=== PATIENT | male | born 1975 | race Caucasian/White ===

== ENCOUNTER 2018-08-13 20:13 | Observation (INO) | payer BC ==
[2018-08-13] MEDS ORDERED: CLINDAMYCIN 600MG/50ML PREMIX 600 MG/50 ML BAG IVPB ONE (20:26)
[2018-08-13] MEDS ORDERED: 0.9 % SODIUM CHLORIDE 1000ML 1,000 ML IV SCH (20:30)
--- NOTE | 2018-08-13 20:32 | Emergency Department Record ---
History of Present Illness - General Chief complaint: Bite Insect/other Stated complaint: REACTION TO BUG BITE LT LEG Time Seen by Provider: 08/13/18 20:24 Source: Patient Mode of Arrival: Ambulatory Limitations: No limitations - History of Present Illness Initial comments: 43 yo male presents to ED for evaluation of an infection to the left lower extremity that began 2 days ago. Patient reports a bug bite to the left lateral thigh that has become infected. Patient reports that he has been squeezing "drainage" from the wound until this afternoon. Patient reports that he is IDDM, denies fevers, chills, or recent illness. MD complaint: Abscess/boil Onset/Timin -: Days(s) Hx Tetanus Toxoid Vaccination: Yes Year of Tetanus Vaccination: unknown Patient Tetanus UTD (within 5 yrs): No Location: LLE Severity: Mild Severity scale (1-10): 3 Consistency: Getting worse Improves with: Other Worsens with: Palpation Associated symptoms: Chills Treatments Prior to Arrival: Attempted to drain pus at home - Related Data Allergies Allergy/AdvReac Type Severity Reaction Status Date / Time amoxicillin Allergy PT UNSURE Verified 08/13/18 21:12 OF REACTION venom-honey bee Allergy ANAPHYLAXIS Verified 08/13/18 21:12 [bee venom (honey bee)] Travel Screening - Travel/Exposure Within Last 30 Days Have you traveled within the last 30 days?: No - Travel Symptoms Symptom Screening: Fever (Subjective) Review of Systems Constitutional: Denies: Chills, Fever, Malaise, Night sweats Eyes: Denies: Eye discharge, Eye pain ENT: Denies: Congestion, Ear pain, Epistaxis Respiratory: Denies: Cough, Dyspnea Cardiovascular: Denies: Chest pain, Dyspnea on exertion Endocrine: Denies: Fatigue, Heat or cold intolerance Gastrointestinal: Denies: Abdominal pain, Nausea, Vomiting Genitourinary: Denies: Incontinence, Retention Musculoskeletal: Denies: Arthralgia, Back pain Skin: Reports: Change in color, Rash. Denies: Bruising Neurological: Denies: Abnormal gait, Confusion, Headache, Seizure Psychiatric: Denies: Anxiety Hematological/Lymphatic: Denies: Anemia, Blood Clots Past Medical History - SOCIAL HISTORY Smoking Status: Former smoker Alcohol Use: Rare Drug Use: None - RESPIRATORY Hx Respiratory Disorders: Yes Hx Sleep Apnea: Yes Hx of CPAP: Yes - CARDIOVASCULAR Hx Cardio Disorders: No - NEURO Hx Neuro Disorders: No - GI Hx GI Disorders: Yes Hx Reflux: Yes - Hx Genitourinary Disorders: No - ENDOCRINE Hx Endocrine Disorders: Yes Hx Diabetes: Yes - MUSCULOSKELETAL Hx Musculoskeletal Disorders: No - PSYCH Hx Psych Problems: No - HEMATOLOGY/ONCOLOGY Hx Hematology/Oncology Disorders: No Family Medical History Any Significant Family History?: Yes Hx Cancer: Grandparents Hx Diabetes: Father, Brother/Sister, Grandparents Physical Exam - General General Appearance: Alert, Oriented x3, Cooperative, Moderate distress Limitations: No limitations - Head Head exam: Atraumatic, Normocephalic, Normal inspection Head exam detail: negative: Abrasion, Contusion, Lovett's sign, General tenderness, Hematoma, Laceration - Eye Eye exam: Normal appearance. negative: Conjunctival injection, Periorbital swelling, Periorbital tenderness, Scleral icterus - ENT Ear exam: negative: Auricular hematoma, Auricular trauma Nasal Exam: negative: Active bleeding, Discharge, Dried blood, Foreign body Mouth exam: negative: Drooling, Laceration, Muffled voice, Tongue elevation - Neck Neck exam: Normal inspection. negative: Meningismus, Tenderness - Respiratory Respiratory exam: Normal lung sounds bilaterally. negative: Rales, Respiratory distress, Rhonchi, Stridor - Cardiovascular Cardiovascular Exam: Normal rhythm, Normal heart sounds, Tachycardia - GI/Abdominal GI/Abdominal exam: Soft. negative: Rebound, Rigid, Tenderness - Rectal Rectal exam: Deferred - exam: Deferred - Extremities Extremities exam: Tenderness, Other (Erythema and induration are present to the left lateral thigh measuring approximately 20 cm in diameter.). negative: Calf tenderness, Pedal edema - Back Back exam: Denies: CVA tenderness (R), CVA tenderness (L) - Neurological Neurological exam: Alert, Normal gait, Oriented X3 - Psychiatric Psychiatric exam: Normal affect, Normal mood - Skin Skin exam: Erythema. negative: Abrasion Type of lesion: Abscess Distribution of rash: LLE Description of rash: Erythematous, Indurated, Tenderness Course Vital Signs 08/13/18 20:18 Temperature 98.4 F Pulse Rate [ 115 H Pulse Ox Probe] Respiratory 24 Rate Blood Pressure 139/87 [Left Arm] Pulse Ox 95 - Reevaluation(s) Reevaluation #1: 08/13/18 20:31 Patient was seen and examined, symptoms appear c/w moderate to sever cellulitis with likely underlying abscess. Will initiate MRSA coverage antibiotics as well as IVFs, laboratory studies, and CT imagint to determine the depth of the patient's infection. Reevaluation #2: 08/13/18 21:04 Laboratory studies reviewed: WBC 16.6 AG 22 Glucose 287 CO2 21. CRP 6.8 Reevaluation #3: 08/13/18 21:37 ESR 57, Venous pH 7.45. Patient is returning from CT at this time, Clindamycin has completed infusion. Reevaluation #4: 08/13/18 21:47 CT Lower extremity: No Abscess No gas formation Cellulitis left lower extremity Patient was updated on all results, will admit for further treatment of the patient's cellulitis. Reevaluation #5: 08/14/18 06:58 Message left for provider to call the ED re: admission overnight. Medical Decision Making - Lab Data Result diagrams: 08/13/18 20:30 08/13/18 20:30 Disposition Disposition: Admit Clinical Impression: Lower extremity cellulitis Qualifiers: Laterality: left Qualified Code(s): L03.116 - Cellulitis of left lower limb Disposition: Still a Patient at [facility] Decision to Admit: Admit from ER Decision to Admit Date: 08/13/18 Decision to Admit Time: 21:49 Condition: (2) Stable Time of Disposition: 21:49 Quality - Quality Measures Quality Measures: N/A - Blood Pressure Screening Does Patient Have Any of the Following: Active Dx of HTN Blood Pressure Classification: Pre-Hypertensive BP Reading Systolic Measurement: 124 Diastolic Measurement: 71 Screening for High Blood Pressure: Patient Exclusion, Hx of HTN [[id number]]
[2018-08-13 20:47] LABS: HEMATOCRIT 47.4 % (42.0-52.0); MEAN CELL VOLUME 87.5 fl (81-97); MEAN CORPUSCULAR HEMOGLOBIN 31.4 pg (27-33); MEAN CORPUSCULAR HGB CONC 35.9 g/dl (32-36); MEAN PLATELET VOLUME 10.6 fl (7.4-10.4); PLATELET COUNT 263 K/uL (130-400); RED BLOOD COUNT 5.42 M/uL (4.40-5.70); WHITE BLOOD COUNT W/O DIFF 16.6 K/uL (4.2-12.2)
[2018-08-13 20:55] LABS: BLOOD UREA NITROGEN 14 mg/dL (6-20)
[2018-08-13 20:56] LABS: CREATININE 0.8 mg/dL (0.7-1.2); EST GLOMERULAR FILTRATION RATE > 60 mL/min; TOTAL PROTEIN 7.5 g/dL (6.6-8.7)
[2018-08-13 20:58] LABS: GLUCOSE,RANDOM 287 mg/dL (74-109)
[2018-08-13 21:01] LABS: ALB/GLOB RATIO 1.1 (1.1-1.8); ALKALINE PHOSPHATASE 84 U/L (40-129); ALT/SGPT 44 U/L (<41); AST/SGOT 32 U/L (10.0-50.0)
[2018-08-13 21:17] LABS: ERYTHROCYTE SEDIMENTATION RATE 57 mm/hr (0-15)
[2018-08-13] MEDS ORDERED: CPAP TP SCH (22:19)
[2018-08-13] MEDS ORDERED: [UNRECOGNIZED DRUG - OTHER] MC SCH (22:19)
[2018-08-13] MEDS ORDERED: ACETAMINOPHEN 500 MG TABLET PO PRN (22:19)
[2018-08-13] MEDS ORDERED: ATORVASTATIN CALCIUM PO SCH (22:19)
[2018-08-13] MEDS ORDERED: CPAP MASK MC SCH (22:19)
[2018-08-13] MEDS ORDERED: 0.9 % SODIUM CHLORIDE 1000ML 1,000 ML IV PRN (22:19)
[2018-08-13] MEDS ORDERED: LEVEMIR FLEXTOUCH 100 UNIT/ML INSULIN PEN SQ SCH (22:45)
[2018-08-13] MEDS: METFORMIN 500 MG TABLET PO SCH (23:28)
[2018-08-14] MEDS: PANTOPRAZOLE SODIUM 40 MG TABLET PO SCH (06:02)
[2018-08-14] MEDS: CLINDAMYCIN 600MG/50ML PREMIX 600 MG/50 ML BAG IVPB SCH ×3 (06:02→21:39)
--- NOTE | 2018-08-14 07:33 | CT SCAN REPORT ---
EXAM: CT OF THE LEFT LOWER EXTREMITY WITH CONTRAST HISTORY: LEFT LOWER EXTREMITY INFECTION. TECHNIQUE: Standard CT imaging through the left thigh was obtained with contrast. Comparison: None. Encounter: Initial. FINDINGS: There is subcutaneous edema over the lateral left thigh. The entire posterior thigh is not included. No visualized discreet rib enhancing fluid collection to suggest abscess. No soft tissue gas is seen. Mildly enlarged left inguinal lymph nodes likely reactive given the above findings. The left femur is unremarkable. Skin thickening is noted over the subcutaneous edema of the posterior lateral left thigh. IMPRESSION: FINDINGS COMPATIBLE WITH LEFT THIGH CELLULITIS. NO EVIDENCE FOR ABSCESS. NO SOFT TISSUE GAS. JOB NUMBER: [id number] MTDD
--- NOTE | 2018-08-14 09:40 | History & Physical ---
History of Present Illness - Date of Service Date of Service for History & Physical: 08/14/18 - History of Present Illness Admitting Diagnosis: Cellulitis LLE. IDDM History of Present Illness: Previous Medical History: Insulin Dependent Type 2 Diabetic, Sleep Apnea, Gastric Reflux Patient is a 43 year old male who presented to the ED on 08/13/18 complaining of infection secondary to bug bite on his left lateral thigh. Patient stated that the bug bite had occurred on 08/11/18 and that since then he had noticed expanding redness and swelling, and had been expressing increasing amounts of pus from the wound over the last 48 hours. However, as it continued to worsen he decided to come to the ED for initiation of abx therapy. He denies any pain, fever, or chills, and states that he did not try any medications or remedies at home. Vitals: P: 115, Otherwise normal vitals Labs: WBC 16.6 (H), ALT 44 (H), anion gap 22(H), Na 135 (L), CRP 6.8 (H) He was admitted for cellulitis given systemic signs of possible sepsis with tachycardia and started on clindamycin. 08/14/18: Patient states that he still does not have any pain, fever, or chills and that the erythema has decreased significantly to roughly half the size. He continues to deny any other symptoms and is able to ambulate independently. Travel Screening - Travel/Exposure Within Last 30 Days Have you traveled within the last 30 days?: No - Travel/Exposure Within Last Year Have you traveled outside the [place] in the last year?: No - Additonal Travel Details Have you been exposed to anyone with a communicable illness?: No - Travel Symptoms Symptom Screening: Fever (Subjective) Review of Systems Constitutional: Denies: Chills, Fever, Malaise, Night sweats, Weakness Eyes: Denies: Vision change ENT: Denies: Congestion, Ear pain, Epistaxis, Throat pain Respiratory: Denies: Cough, Dyspnea, Wheezes Cardiovascular: Denies: Chest pain, Dyspnea on exertion, Edema, Palpitations, Syncope Endocrine: Denies: Fatigue, Heat or cold intolerance Gastrointestinal: Denies: Abdominal pain, Constipation, Diarrhea, Nausea, Vomiting Genitourinary: Denies: Dysuria, Frequency Musculoskeletal: Denies: Arthralgia, Back pain Skin: Reports: Change in color, Rash. Denies: Bruising Neurological: Denies: Abnormal gait, Confusion, Headache, Seizure Past Medical History - SOCIAL HISTORY Smoking Status: Former smoker Alcohol Use: Rare Drug Use: None - RESPIRATORY Hx Respiratory Disorders: Yes Hx Sleep Apnea: Yes Hx of CPAP: Yes - CARDIOVASCULAR Hx Cardio Disorders: No - NEURO Hx Neuro Disorders: No - GI Hx GI Disorders: Yes Hx Reflux: Yes - Hx Genitourinary Disorders: No - ENDOCRINE Hx Endocrine Disorders: Yes Hx Diabetes: Yes - MUSCULOSKELETAL Hx Musculoskeletal Disorders: No - PSYCH Hx Psych Problems: No - HEMATOLOGY/ONCOLOGY Hx Hematology/Oncology Disorders: No Family Medical History Any Significant Family History?: Yes Hx Cancer: Grandparents Hx Diabetes: Father, Brother/Sister, Grandparents H&P Meds/Allergies - Allergies Allergies: Allergies Allergy/AdvReac Type Severity Reaction Status Date / Time amoxicillin Allergy PT UNSURE Verified 08/13/18 21:12 OF REACTION venom-honey bee Allergy ANAPHYLAXIS Verified 08/13/18 21:12 [bee venom (honey bee)] - Active Medications Active Medications: Current Medications Acetaminophen (Tylenol 500mg Tab) 1,000 mg PO Q6H PRN PRN Reason: PAIN - MILD(1-4)/FEVER Atorvastatin Calcium (Lipitor) 20 mg PO DAILY [facility] Sodium Chloride () 1,000 mls @ 125 mls/hr IV .Q8H PRN PRN Reason: LARGE VOLUME IV Clindamycin Phosphate (Cleocin 600 [id number]) 600 mg in 50 mls @ 100 mls/ hr IVPB Q8HR [facility] Last Infusion: 08/14/18 06:36 Dose: Infused Insulin Detemir (Levemir Flextouch) 10 unit SQ QHS [facility] Last Admin: 08/13/18 23:29 Dose: 10 unit Lisinopril (Zestril) 5 mg PO DAILY [facility] Metformin HCl (Glucophage Ir) 1,000 mg PO BID [facility] Last Admin: 08/13/18 23:28 Dose: 1,000 mg Pantoprazole Sodium ([facility]ton[facility]) [address] [facility] [facility] Last Admin: 08/14/18 06:02 Dose: 40 mg Physical Exam - Vital Signs Vital Signs: Vital Signs - Last 24 Hrs Temp Pulse Resp BP Pulse Ox 08/14/18 06:00 98.1 F 79 18 124/71 99 08/13/18 23:08 16 08/13/18 23:00 98.4 F 95 H 20 145/78 96 08/13/18 22:32 92 H 20 102/54 96 08/13/18 21:45 94 H 24 146/74 99 08/13/18 20:18 98.4 F 115 H 24 139/87 95 - General General Appearance: Alert, Oriented x3, Cooperative, No acute distress Limitations: No limitations - Head Head exam: Atraumatic, Normocephalic, Normal inspection Head exam detail: negative: Abrasion, Contusion, General tenderness, Hematoma, Laceration - Eye Eye exam: Normal appearance. negative: Conjunctival injection, Periorbital swelling - ENT ENT exam: Normal exam Nasal Exam: Normal inspection Mouth exam: Normal external inspection Throat exam: Normal inspection - Neck Neck exam: Normal inspection, Full ROM. negative: Tenderness - Respiratory Respiratory exam: Normal lung sounds bilaterally. negative: Rales, Respiratory distress, Rhonchi, Stridor, Wheezes - Cardiovascular Cardiovascular Exam: Regular rate, Normal rhythm, Normal heart sounds - GI/Abdominal GI/Abdominal exam: Soft, Normal bowel sounds - Rectal Rectal exam: Deferred - exam: Deferred - Extremities Extremities exam: Normal capillary refill, Other (Erythema and some minor swelling is present on left lateral thigh, Warm to the touch. mild pain on palpation. ). negative: Calf tenderness, Pedal edema - Back Back exam: Reports: Normal inspection - Neurological Neurological exam: Alert, Oriented X3 - Psychiatric Psychiatric exam: Normal affect, Normal mood - Skin Skin exam: Erythema. negative: Abrasion Type of lesion: Rash. negative: Abscess Distribution of rash: LUE Description of rash: Erythematous, Size (roughly 4 inch by 3 inch lesion with central punctate. ), Tenderness (mild). negative: Blisters, Bullous, Crusting, Discharge, Fluctuant, Indurated Results - Labs Result Diagrams: 08/13/18 20:30 08/13/18 20:30 Labs Last 24 Hours: Laboratory Results - last 24 hr 08/13/18 08/13/18 08/13/18 20:27 20:27 20:30 WBC 16.6 H RBC 5.42 Hgb 17.0 Hct 47.4 MCV 87.5 MCH 31.4 MCHC 35.9 RDW 14.0 Plt Count 263 MPV 10.6 H Neutrophils % 63.0 Band Neutrophils % 0.0 Eosinophils % Not Reportable Basophils % Not Reportable Lymphocytes 26.0 Monocytes 11.0 H Basophils 0.0 ESR Cancelled 57 H Eosinophil Count 0.0 VBG pH Sodium Potassium Chloride Carbon Dioxide Anion Gap BUN Creatinine Estimated GFR POC Glucose Random Glucose Calcium Total Bilirubin AST ALT Alkaline Phosphatase C-Reactive Protein Cancelled Total Protein Albumin Globulin Albumin/Globulin Ratio 08/13/18 08/13/18 08/14/18 20:30 21:16 07:30 WBC RBC Hgb Hct MCV MCH MCHC RDW Plt Count MPV Neutrophils % Band Neutrophils % Eosinophils % Basophils % Lymphocytes Monocytes Basophils ESR Eosinophil Count VBG pH 7.45 H Sodium 135 L Potassium 4.3 Chloride 92 L Carbon Dioxide 21.0 L Anion Gap 22.0 H BUN 14 Creatinine 0.8 Estimated GFR > 60 POC Glucose 278 H Random Glucose 287 H Calcium 9.9 Total Bilirubin 0.50 AST 32 ALT 44 H Alkaline Phosphatase 84 C-Reactive Protein 6.80 H Total Protein 7.5 Albumin 4.0 Globulin 3.5 Albumin/Globulin Ratio 1.1 VTE H&P Assessment - Risk for VTE Risk for VTE: Yes Risk Level: Low Risk Assessment Date: 08/14/18 Risk Assessment Time: 11:19 VTE Orders Placed or Will Be Placed: Yes Plan - Inpatient Certification Inpatient Certification: Admit to inpatient care: Based on my medical assessment, after consideration of patient's risk factors (age, co-morbidities and patient presenting symptoms and acuity), I expect that this patient will remain in the hospital greater than or equal to two midnights and that the services needed warrant inpatient care because: Patient Risk Factors: [diabetes] Estimated length of stay: [2] The patient may reasonably be expected to be discharged or transferred to a hospital within 96 hours after admission to [facility]. Services needed: [IV abx ] Post hospital care (if known): [] I certify that my determination is in accordance with my understanding of Medicare requirements for reasonable and necessary inpatient services. 08/14/18 11:30 - Detailed Diagnosis and Plan (1) Lower extremity cellulitis Current Visit: Yes Status: Acute Qualifiers: Laterality: left Qualified Code(s): L03.116 - Cellulitis of left lower limb Base Code: L03.119 - CELLULITIS OF UNSPECIFIED PART OF LIMB Priority: High Comment: -IV Clindamycin Q8 hours -Likely to discharge tomorrow if continues to improve -Will naun area for any oncoming caregiver to evaluate progression. (2) Diabetes mellitus Current Visit: Yes Status: Chronic Qualifiers: Diabetes mellitus type: type 2 Diabetes mellitus buttermaker continuous churn insulin use: with buttermaker continuous churn use Diabetes mellitus complication status: without complication Qualified Code(s): E11.9 - Type 2 diabetes mellitus without complications; Z79.4 - marine oil terminal superintendent (current) use of insulin Base Code: E11.9 - TYPE 2 DIABETES MELLITUS WITHOUT COMPLICATIONS Priority: Medium Comment: - Pt states that he currently only uses long acting insulin and metformin. - Only started insulin 3 months ago, working on titration with PCP. - Will monitor with accuchecks. Continue home medications as prescribed. (3) DVT prophylaxis Current Visit: Yes Status: Acute Base Code: [id number] - Priority: Medium Comment: Low risk, SCD's ordered while in bed. Encourage embulation. - Disposition Likely home tomorrow if continued improvement.
[2018-08-14] MEDS: METFORMIN 500 MG TABLET PO SCH ×2 (10:20→21:39)
[2018-08-14] MEDS: LISINOPRIL 5 MG TABLET PO SCH (10:21)
[2018-08-14] MEDS: ATORVASTATIN 20 MG TABLET PO SCH (10:21)
[2018-08-14] MEDS ORDERED: LEVEMIR FLEXTOUCH 100 UNIT/ML INSULIN PEN SQ SCH (22:00)
[2018-08-15] MEDS: PANTOPRAZOLE SODIUM 40 MG TABLET PO SCH (06:18)
[2018-08-15] MEDS: CLINDAMYCIN 600MG/50ML PREMIX 600 MG/50 ML BAG IVPB SCH ×2 (06:18→15:08)
[2018-08-15] MEDS: METFORMIN 500 MG TABLET PO SCH (11:26)
[2018-08-15] MEDS: ATORVASTATIN 20 MG TABLET PO SCH (11:26)
[2018-08-15] MEDS: LISINOPRIL 5 MG TABLET PO SCH (11:26)
--- NOTE | 2018-08-15 17:58 | Discharge Summary ---
Providers Discharge Summary Date: 08/15/18 Date of admission: 08/13/18 22:34 Attending physician: YADI JARQUIN Primary care physician: Joi Godinez N.P. Physical Exam - Vital Signs Vital Signs: Vital Signs - Last 24 Hrs Temp Pulse Resp BP Pulse Ox 08/15/18 11:59 78 136/87 08/15/18 09:00 81 16 08/15/18 08:00 97.5 F L 81 16 147/86 94 L 08/15/18 04:00 98.3 F 80 16 107/46 100 08/14/18 18:46 97.3 F L 86 18 141/82 97 - General General Appearance: Alert, Oriented x3, Cooperative, No acute distress Limitations: No limitations - Head Head exam: Atraumatic, Normocephalic, Normal inspection Head exam detail: negative: Abrasion, Contusion, General tenderness, Hematoma, Laceration - Eye Eye exam: Normal appearance. negative: Conjunctival injection, Periorbital swelling - ENT ENT exam: Normal exam Ear exam: negative: Auricular hematoma, Auricular trauma Nasal Exam: Normal inspection Mouth exam: Normal external inspection Throat exam: Normal inspection - Neck Neck exam: Normal inspection, Full ROM. negative: Tenderness - Respiratory Respiratory exam: Normal lung sounds bilaterally. negative: Rales, Respiratory distress, Rhonchi, Stridor, Wheezes - Cardiovascular Cardiovascular Exam: Regular rate, Normal rhythm, Normal heart sounds Peripheral Pulses: 2+: Radial (R), Radial (L), Dorsalis Pedis (R), Dorsalis Pedis (L) - GI/Abdominal GI/Abdominal exam: Soft, Normal bowel sounds - Rectal Rectal exam: Deferred - exam: Deferred - Extremities Extremities exam: Normal capillary refill, Other (Erythema and some minor swelling is present on left lateral thigh, Warm to the touch. mild pain on palpation. ). negative: Calf tenderness, Pedal edema - Neurological Neurological exam: Alert, Oriented X3 - Psychiatric Psychiatric exam: Normal affect, Normal mood - Skin Skin exam: Erythema. negative: Abrasion Type of lesion: Rash. negative: Abscess Distribution of rash: LUE Description of rash: Erythematous (Decreased from previous outline margins), Size (roughly 4 inch by 3 inch lesion with central punctate. ), Tenderness (mild ). negative: Blisters, Bullous, Crusting, Discharge, Fluctuant, Indurated Hospitalization - Hospitalization Admission Diagnosis: Cellulitis LLE. IDDM - Problem List/Discharge Diagnosis (1) Lower extremity cellulitis Current Visit: Yes Status: Acute Discharge Diagnosis: Laterality: left Qualified Code(s): L03.116 - Cellulitis of left lower limb Base Code: L03.119 - CELLULITIS OF UNSPECIFIED PART OF LIMB Comment: 08/15/18: -CT of Left Thigh = Cellulitis, no evidence for abscess or soft tissue gas -Continued improvement with IV Clindamycin, redness has receded from outlined margins -D/C IV Clindamycin, change to Oral -Clindamycin 300mg PO q. 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 -Only started insulin 3 months ago, continue working on titration with PCP. -F/u with PCP as scheduled (3) DVT prophylaxis Current Visit: Yes Status: Acute Base Code: [id number] - Comment: 08/15/18: -Low Risk -Encouraged ambulation (4) Full code status Current Visit: Yes Status: Acute Base Code: Z78.9 - OTHER SPECIFIED HEALTH STATUS Comment: 08/15/18: -Pt a full code this admission - Hospitalization Course Disposition: Home, Self-Care Hospital Course: Previous Medical History: Insulin Dependent Type 2 Diabetic, Sleep Apnea, Gastric Reflux Patient is a 43 year old male who presented to the ED on 08/13/18 complaining of infection secondary to bug bite on his left lateral thigh. Patient stated that the bug bite had occurred on 08/11/18 and that since then he had noticed expanding redness and swelling, and had been expressing increasing amounts of pus from the wound over the last 48 hours. However, as it continued to worsen he decided to come to the ED for initiation of abx therapy. He denies any pain, fever, or chills, and states that he did not try any medications or remedies at home. Vitals: P: 115, Otherwise normal vitals Labs: WBC 16.6 (H), ALT 44 (H), anion gap 22(H), Na 135 (L), CRP 6.8 (H) He was admitted for cellulitis given systemic signs of possible sepsis with tachycardia and started on clindamycin. 08/14/18: Patient states that he still does not have any pain, fever, or chills and that the erythema has decreased significantly to roughly half the size. He continues to deny any other symptoms and is able to ambulate independently. Procedures: Imaging and X-Rays 08/13/18 20:25 LOWER EXTREMITY W CONTRAST [CT] Stat Abnormal Labs: Abnormal Lab Results 08/13/18 08/13/18 08/13/18 Range/Units 20:30 20:30 21:16 WBC 16.6 H (4.2-12.2) K/uL MPV 10.6 H (7.4-10.4) fl Monocytes 11.0 H (0-9) % ESR 57 H (0-15) mm/hr VBG pH 7.45 H (7.33-7.43) Sodium 135 L (136-145) mmol/L Chloride 92 L (98-107) mmol/L Carbon Dioxide 21.0 L (22-29) mmol/L Anion Gap 22.0 H (7-16) POC Glucose (70-110) mg/dL Random Glucose 287 H (74-109) mg/dL ALT 44 H (<41) U/L C-Reactive Protein 6.80 H (<0.5) mg/dL 08/13/18 08/14/18 08/14/18 Range/Units 23:21 07:30 17:00 WBC (4.2-12.2) K/uL MPV (7.4-10.4) fl Monocytes (0-9) % ESR (0-15) mm/hr VBG pH (7.33-7.43) Sodium (136-145) mmol/L Chloride (98-107) mmol/L Carbon Dioxide (22-29) mmol/L Anion Gap (7-16) POC Glucose 387 H 278 H 257 H (70-110) mg/dL Random Glucose (74-109) mg/dL ALT (<41) U/L C-Reactive Protein (<0.5) mg/dL 08/15/18 08/15/18 08/15/18 Range/Units 07:30 11:30 17:00 WBC (4.2-12.2) K/uL MPV (7.4-10.4) fl Monocytes (0-9) % ESR (0-15) mm/hr VBG pH (7.33-7.43) Sodium (136-145) mmol/L Chloride (98-107) mmol/L Carbon Dioxide (22-29) mmol/L Anion Gap (7-16) POC Glucose 270 H 384 H 159 H (70-110) mg/dL Random Glucose (74-109) mg/dL ALT (<41) U/L C-Reactive Protein (<0.5) mg/dL Condition at Discharge: (2) Stable VTE Discharge VTE Reason For No Overlap Therapy: Not Indicated Discharge Medications - Discharge Medications Prescriptions: Clindamycin HCl [Cleocin HCl] 300 mg PO Q6H 8 Days #60 cap Home Medications: Ambulatory Orders Esomeprazole Magnesium [Nexium] 20 mg PO QD cap 05/14/18 [Last Taken Unknown] Acetaminophen [Tylenol 500Mg Tab] 1,000 mg PO Q6H PRN tablet 08/15/18 [Last Taken Unknown] Clindamycin HCl [Cleocin HCl] 300 mg PO Q6H 8 Days #60 cap 08/15/18 [Last Taken Unknown] Insulin Detemir [Levemir Flextouch] 16 unit SQ QHS syringe 08/15/18 [Last Taken Unknown] Discharge Plan - Discharge Instructions Activity at Discharge: Increase Activity as Tolerated Diet at Discharge: Diabetic Diet, Low Fat, Low Cholesterol Additional Instructions: Follow up with PCP Joi Godinez as scheduled on Saturday08/20/18 Increase Levemir to 16 units daily Take Clindamycin 300mg every 6 hours for 8 days (until pills are gone) Take Probiotics and/or yogurt to help replace the good bacteria in your gut that the antibiotics might be killing off May take Tylenol 1000mg for pain, do NOT exceed 4,000mg of acetaminophen ( Tylenol) in a 24 hour period Return to ED if cellulitis worsens and/or you develop fever and chills Quality Measures - Quality Measures Quality Measures: Documentation of Current Medications in Medical Record, Screening for High Blood Pressure and F/U Documented - Current Medications Quality Measure: Measure #130: Documentation of Current Medications Documentation of Current Medications: <Current Medications Documented/Reviewed> [[id number]] - Blood Pressure Screening Quality Measure: Screening for High Blood Pressure and Follow-Up Documented Does Patient Have Any of the Following: Active Dx of HTN Blood Pressure Classification: Pre-Hypertensive BP Reading Systolic Measurement: 136 Diastolic Measurement: 87 Screening for High Blood Pressure: Patient Exclusion, Hx of HTN [[id number]] Pre-Hypertensive Follow-up Interventions: Referral to alternative/primary care provider. - Elder Abuse Suspicion Index EASI Reference Information: Darryl PAYNE, Tim C, Abby D, Daisy Amezquita.Development and validation of a tool to assist physicians identification of elder abuse: The Elder Abuse Suspicion Index (EASI ). Journal of Elder Abuse and Neglect, 2008; 20 (3): 276-300.
[2018-08-15] MEDS ORDERED: LEVEMIR FLEXTOUCH 100 UNIT/ML INSULIN PEN SQ SCH (22:00)
[2018-08-15] MEDS ORDERED: CLINDAMYCIN 150 MG CAP PO SCH ×2 (22:00)
== END 2018-08-15 07:45 | disposition home or self-care (01) ==
LOC: ER 20:13 → INTOOBSV 22:34 → MEDSURG 22:34
PROVIDERS: ADMIT Internal Medicine; ATTEND Internal Medicine
DX: L03.116 Cellulitis of left lower limb (principal); E11.9 Type 2 diabetes mellitus without complications; Z79.4 Long term (current) use of insulin; K21.9 Gastro-esophageal reflux disease without esophagitis; G47.30 Sleep apnea, unspecified; Z87.891 Personal history of nicotine dependence
CPT/HCPCS: 99285 ×2; 96365; 82800; 85651; 86140; 80053; 36416 ×3; 82948 ×3; 85027; 73701; G0378 ×3; Q9967; J1815; 99217; 99220; J7030